=== PATIENT | female | born 1965 | race Caucasian/White ===

== ENCOUNTER → 2024-03-04 | Outpatient (CLI) | payer MEDICAID ==
[2024-03-04 12:32] LABS: INR 1.1 (<1.2); Partial Thromboplastin Time 26.4 sec (22.0-30.0); Prothrombin Time 11.6 sec (10.0-12.5)
[2024-03-04 15:25] LABS: HCT 46.1 % (37.2-46.3); MCH 31.9 pg (27.0-32.0); MCHC 32.5 g/dL (32.0-37.0); MCV 98.1 FL (80.0-97.0); Mean Platelet Volume 10.2 FL (9.5-12.2); NRBC Per 100 WBC 0 X 10*3/uL (0.00-0.01); Platelet Count 234 X 10*3/uL (140-440); RDW 14.1 % (11.5-14.5); WBC 10.31 X 10*3/uL (4.50-10.00)
[2024-03-04 15:38] LABS: ALT 107 U/L (8-44); AST 112 U/L (13-35); Albumin 4.1 g/dL (3.8-4.9); Albumin/Globulin Ratio 1.24 Ratio (1.60-3.17); Alkaline Phosphatase 131 U/L (41-126); BUN/Creat Ratio 19.11 Ratio (12.00-20.00); Blood Urea Nitrogen 17.2 mg/dL (9.0-27.0); Calcium 9.5 mg/dL (8.7-10.3); Carbon Dioxide 26.5 mmol/L (21.6-31.8); Chloride 102 mmol/L (96-109); Globulin 3.3 g/dL (1.6-3.3); Glucose 98 mg/dL (70-110); Potassium 4.7 mmol/L (3.5-5.5); Sodium 138 mmol/L (135-145); Total Bilirubin 0.5 mg/dL (0.3-1.2); Total Protein 7.4 g/dL (6.2-8.2)
== END | disposition home or self-care (01) ==
LOC: LABWHC1 10:48
PROVIDERS: ATTEND Orthopaedic Surgery
CPT/HCPCS: 36415; 80053; 85027; 85610; 85730; 87070

== ENCOUNTER 2024-03-16 05:34 | Day surgery (SDC) | payer MEDICAID ==
[2024-03-10 10:37] VITALS: BMI 46.8
[~2024-03-16 05:34] MED LIST: TRANEXAMIC 1,000 MG/100ML-NACL 1,000 MG in SALINE 1 100ML.BAG IVPB PRN
[2024-03-16] MEDS ORDERED: LIDOCAINE 1% (10MG/ML) FOR IV START INTRADERMA PRN (05:52)
[2024-03-16] MEDS: LACTATED RINGERS 1,000 ML IV SCH (06:15)
[2024-03-16] MEDS: IV FLUID CONTINUATION 1,000 ML IV ONE ×2 (06:15→10:34)
[2024-03-16] MEDS: GABAPENTIN 300 MG CAP PO PRN (06:18)
[2024-03-16] MEDS: MELOXICAM 7.5 MG TAB PO PRN (06:19)
[2024-03-16] MEDS: ACETAMINOPHEN TAB 500 MG TAB PO PRN (06:19)
[2024-03-16] MEDS: ONDANSETRON 4 MG/2 ML VIAL IVP ONE (06:20)
[2024-03-16 06:33] LABS: Glucose,Whole Blood 136 mg/dL (70-110)
[2024-03-16] MEDS: MIDAZOLAM 2 MG/2 ML VIAL IV ONE (06:34)
[2024-03-16] MEDS ORDERED: KETAMINE HCL IN 0.9 % NACL 50 MG/5 ML SYRINGE ONE (06:54)
[2024-03-16] MEDS ORDERED: fentaNYL (PF) 50 MCG/ML 2 ML AMP ONE (06:54)
[2024-03-16] MEDS ORDERED: TRANEXAMIC 1,000 MG/100ML-NACL PREMIX BAG ONE (06:54)
[2024-03-16] MEDS ORDERED: PHENYLEPHRINE-0.9% NACL SYG 1,000 MCG/10 ML SYRINGE ONE (06:54)
[2024-03-16] MEDS ORDERED: ROPIVACAINE 5 MG/ML 30 ML VIAL ONE (06:54)
[2024-03-16] MEDS ORDERED: MIDAZOLAM 2 MG/2 ML VIAL ONE (06:54)
[2024-03-16] MEDS ORDERED: GLYCOPYRROLATE 0.2 MG/ML 2 ML VIAL ONE (06:54)
[2024-03-16] MEDS ORDERED: PROPOFOL 10 MG/ML 20 ML VIAL IV ONE (06:54)
[2024-03-16] MEDS ORDERED: SODIUM CHLORIDE 0.9% (PF) 10 ML VIAL ONE (06:54)
[2024-03-16] MEDS: ceFAZolin 3 GM in SODIUM CHLORIDE 0.9% 100 ML IVPB PRN (07:00)
[2024-03-16] MEDS: ceFAZolin 1,000 MG in SODIUM CHLORIDE 0.9% 1,000 ML IRRIGATION ONE (07:00)
[2024-03-16] MEDS ORDERED: fentaNYL (PF) 50 MCG/ML 2 ML AMP IV PRN (07:00)
--- NOTE | 2024-03-16 08:12 | P.OP ---
Date of Procedure: 03/16/24 Preoperative Diagnosis: Severe osteoarthritis right knee Postoperative Diagnosis: Severe osteoarthritis right knee Procedure(s) Performed: Right total knee arthroplasty Implants: [employer] Journey II CR Oxinium cruciate retaining femoral component size 5, right [employer] Journey nonporous tibial baseplate size 4, right [employer] Journey II, XLPE Deep Dished articular insert, size 9 mm, Size 3- 4, right [employer] Journey Josy II resurfacing patellar component, oval, 29 mm All components were cemented using Palacos R bone cement The articulation is Oxinium on polyethylene Anesthesia: spinal Surgeon: Dallas Clemens Yardage Control Operator Forming #1: Mallorie Dhaliwal Estimated Blood Loss (ml): 30 Pathology: none sent Condition: stable Disposition: PACU Indications for Procedure: The patient's knee is end-stage, and conservative management has failed. The operation of knee replacement has been discussed at length in the office, as well as potential risks and complications. These are inclusive of, but not limited to: Infection, bleeding, scarring, discomfort, stiffness, blood vessel and nerve damage, need for further surgery, failure to relieve symptoms, persistence, recurrence, or worsening of problems, loosening, dislocation, wear, blood clot, pulmonary embolism, , gait dysfunction, stiffness, and other risks as discussed in the office. Patient elects to proceed and the consent form has been signed. Operative Findings: The operative findings are consistent with severe osteoarthritis of the right knee Description of Procedure: The patient was seen in the preoperative area, the consent was reviewed and the operative site was marked with a skin marker. The patient verified the procedure and the operative site. An adductor canal pain catheter and an iPACK block were placed by anesthesia in the preoperative area. The patient was then brought to the operating room and positioned on the operating room table in the supine position. Preoperative antibiotics and a gram of tranexamic acid were given intravenously. A spinal anesthetic was administered by the anesthesia department. Care was taken to make sure that all pressure points were adequately padded. A tourniquet was placed on the upper thigh and the lower extremity was prepped with ChloraPrep and draped in usual sterile fashion. A universal time-out was then performed which confirmed the patient's name, surgical site, ALLERGIES, and consent. The lower extremity was then exsanguinated and tourniquet was inflated to 250 mmHg. A standard anterior midline approach to the knee was performed. The skin and subcutaneous tissue were sharply dissected down to the patellar tendon. A medial parapatellar arthrotomy was then performed. The knee was then extended, the patellar was everted, and the knee was flexed. The infra-patellar fat pad was removed in order to enhance exposure. The anterior horns of both menisci were excised, and a release was performed to the posterior medial aspect of the knee. On gross visual inspection, there was complete loss of articular cartilage in the medial and patellofemoral joint spaces. There was also significant cartilage damage in the lateral compartment. There were multiple periarticular osteophytes globally about the knee which were then removed with a Ronguer. The femoral canal was then opened with the 9.5 mm intramedullary drill. The 8 mm intramedullary michelle was then inserted into the femoral canal with the distal femoral cutting guide set for 5 of valgus. The distal femoral cutting block was then pinned in place. The intramedullary michelle was then removed, and the distal femur was then cut. The cutting block was then removed and the cut was checked for symmetry. The resected bone was then measured to confirm the appropriate distal femoral resection. Next, the sizing guide was then placed and set for 3 external rotation based off of the epicondylar axis and Ashland's line. Pins were then placed and the drill holes, and the femur was sized with the sizing stylus. The pins were then removed, and the sizing guide was then removed. The spikes of the appropriate size femoral block was then placed into the predrilled holes, and malleted into place. Two 45 mm pins were then placed into the fixation holes on the cutting block. An berna wing was then used to ensure there would be no notching with the anterior cut. The anterior condyles were cut without notching. The anterior chord cut was then performed, followed by the posterior cut, posterior chamfer cut, and the anterior chamfer cut. The collateral ligaments were protected during the entire process. The cutting block was then removed. Any remaining bone and osteophytes were removed from the femur with a Ronguer. Attention was then directed to the tibia. The remaining ACL was removed with a Ronguer, and the tibia was then gently subluxed forward with a large bent knee retractor. Any remaining menisci were excised. The posterior lateral corner was cauterized in order to coagulate the lateral geniculate artery. The extra medullary tibial cutting guide was then placed, set for the appropriate rotation, slope, and depth of resection. The proximal tibia cutting guide was then pinned in place. Proximal tibia was then cut and sized. A curved osteotome was then used to remove any posterior osteophytes from the distal femur. The femoral trial was placed. A narrow saw blade was then used to remove the anterior intracondylar femoral bone. The CR notch trial was then placed. The tibial trial was placed with the appropriate-sized insert. The knee was able to fully extend and flex to 130 and was stable throughout all range of motion. The knee was then extended and the patella was everted. Patella was then measured, and then using an osteotomy guide, the patella was cut at the appropriate level. The patellar component was sized. The patellar drill guide was placed and the patella was drilled. The patella trial was then placed. The knee was then taken through range of motion with the patella trial and the patella tracked normally using the no thumbs technique. The patella trial was t hen removed. The knee was then flexed and lug holes were drilled through the femoral trial and the femoral trial was then removed. The tibial was then re- exposed, and the tibial broach guide was then pinned in place after it was set for the appropriate rotation to allow for the most coverage without overhang. The tibia was then reamed and broached. The femoral canal was plugged with autologous bone. The cut surfaces of bone were then irrigated with pulsatile lavage. The knee was also irrigated with Irrisept solution. The components were then opened, the cement was mixed. Cement was placed on the backside of the femoral, tibial, and patellar components. Cement was then applied to the tibial surface and pressurized into the surface using finger pressurization technique. The tibial component was then applied and excess cement was removed after it was impacted securely noted to be flush with the cut surface. In similar fashion, the cement was applied to the cut femoral surface, pressurized and using finger pressurization the component was impacted in place. Excess cement was removed. The polyethylene spacer was then implanted and locked into position. Patellar component was then applied in a similar technique and the patellar clamp was used to hold patella in place while the cement hardened. The knee was held in full extension while the cement hardened. Once the cement had fully hardened, the knee was reinspected. Any other cement extrusion was removed the final range of motion testing showed range of motion from 0-130 with excellent stability, both medial and laterally and appropriate alignment of the leg. Patella tracked normally. After the cemented hardened, the tourniquet was released and hemostasis was obtained. A second gram of transexamic acid was given intravenously. The knee was again irrigated. The knee was again taken through range of motion and found to be stable throughout all range of motion of 0-130, and the patella tracked normally. The fascia was then closed with 0 Vicryl followed by #2 strata fix suture. The subcutaneous tissue was closed with 3-0 Vicryl and 3-0 strata fix. Exofin glue was used for the skin and placed with the knee in flexion. After the glue had dried, and Optafoam silver impregnated dressing was applied. A lightly compressive dressing was applied using web roll and Andrea wrap. Patient was then transferred to the stretcher and taken to recovery room in stable condition. Sponge and needle counts were correct. The activities assistant EVIE Nichole was required due the complexity surgery and the need for a skilled recruitment assistant. She assisted in positioning, draping, retraction, and closure of the wound.
[2024-03-16] MEDS ORDERED: MAGNESIUM HYDROXIDE 2,400 MG/30 ML CUP PO PRN (08:43)
[2024-03-16] MEDS ORDERED: NA PHOS,M-B/NA PHOS,DI-BA 133 ML ENEMA RECTAL PRN (08:43)
[2024-03-16] MEDS ORDERED: NALOXONE 0.4 MG/ML 1 ML VIAL IV PRN (08:43)
[2024-03-16] MEDS ORDERED: ONDANSETRON 4 MG/2 ML VIAL IVP PRN (08:43)
[2024-03-16] MEDS ORDERED: HYDROmorphone 0.5 MG/0.5 ML SYRINGE IVP PRN (08:43)
[2024-03-16] MEDS ORDERED: bisacodyL 10 MG SUPP RECTAL PRN (08:43)
[2024-03-16] MEDS ORDERED: HYDROcodone/APAP 7.5-325MG 1 EACH TAB PO PRN (08:45)
--- NOTE | 2024-03-16 09:07 | P.ANPRN ---
Procedure Note - Anesthesia - Nerve Block Performed Right Adductor Canal Infusion Time Out Performed: Yes (0646) Date of Procedure: 03/16/24 Procedure Start Time: 06:47 Procedure Stop Time: 06:51 Location of Patient: PreOp Indication: Acute Post-Operative Pain, Requested by Surgeon Specifically requested for management of pain by DrMarcus: Dallas Clemens Sedation Type: Sedate with meaningful contact maintained Preparation: Sterile Prep, Sterile Dressing Position: Supine Catheter Depth at Skin (cm): 7 Catheter: Indwelling Needle Types: Pajunk Needle Gauge: 18 Ultrasound used to visualize needle placement: Yes Ultrasound used to observe medication spread: Yes Injectate: 0.5% Ropivacaine (see comment for volume) (15cc+10cc nacl pf) Blood Aspirated: No Pain Paresthesia on Injection Noted: No Resistance on Injection: Normal Image Stored and Saved: Yes Events: Uneventful and Well Tolerated
--- NOTE | 2024-03-16 09:08 | P.ANPRN ---
Procedure Note - Anesthesia - Nerve Block Performed Right iPack Single Time Out Performed: Yes (0646) Date of Procedure: 03/16/24 Procedure Start Time: 06:52 Procedure Stop Time: 06:54 Location of Patient: PreOp Indication: Acute Post-Operative Pain, Requested by Surgeon Specifically requested for management of pain by DrMarcus: Dallas Clemens Sedation Type: Sedate with meaningful contact maintained Preparation: Sterile Prep, Sterile Dressing Position: Supine Catheter: None Needle Types: Pajunk Needle Gauge: 21 Ultrasound used to visualize needle placement: Yes Ultrasound used to observe medication spread: Yes Injectate: 0.5% Ropivacaine (see comment for volume) (15cc+10cc nacl pf) Blood Aspirated: No Pain Paresthesia on Injection Noted: No Resistance on Injection: Normal Image Stored and Saved: Yes Events: Uneventful and Well Tolerated
--- NOTE | 2024-03-16 09:09 | XR ---
EXAMINATION TYPE: XR knee limited RT DATE OF EXAM: 03/16/2024 9:06 AM COMPARISON: None CLINICAL INDICATION: Female, 58 years old with history of Evaluation for Postop abnormality and align ment; [facility] TECHNIQUE: XR knee limited RT; examined in Frontal, lateral projections. FINDINGS: Status post total knee arthroplasty changes with hardware in appropriate alignment and in tact. No evidence of fracture. Subcutaneous lucencies and lucencies within the joint consistent with surgical changes. IMPRESSION: Status post total knee arthroplasty changes with hardware intact and appropriate alignment. No fractu res identified. [facility], , 03/16/2024 9:07 AM
[2024-03-16 09:39] LABS: Glucose,Whole Blood 135 mg/dL (70-110)
[2024-03-16] MEDS: ROPIVACAINE 1,100 MG, SODIUM CHLORIDE 0.9% 500 ML 330 ML, EMPTY PAIN BALL 1 EACH MISCELLANE PRN (09:52)
[2024-03-16] MEDS: SODIUM CHLORIDE 0.9% 1,000 ML IV SCH (10:33)
[2024-03-16] MEDS: MELOXICAM 7.5 MG TAB PO SCH (11:19)
[2024-03-16] MEDS: HYDROmorphone 0.5 MG/0.5 ML SYRINGE IVP PRN (11:21)
[2024-03-16] MEDS: HYDROcodone/APAP 7.5-325MG 1 EACH TAB PO PRN (12:20)
[2024-03-16] MEDS ORDERED: DEXTROSE 50% SYRINGE 50 ML IVP PRN ×2 (13:52)
--- NOTE | 2024-03-16 14:16 | P.CONS ---
History of Present Illness - Reason for Consult Consult date: 03/16/24 Medical management, right knee arthroplasty - History of Present Illness This is a very pleasant 58-year-old female who was admitted under orthopedic services status post right knee total arthroplasty, postop day 0. Patient reports she follows with Dr. humphreys in the outpatient setting with a past medical history of "prediabetes", GERD, hyperlipidemia, hypertension, osteoarthritis, sleep apnea uses a CPAP, thyroid disorder, anxiety/depression. Patient reports her pain is currently controlled and recommends to continue with incentive spirometer use at least 10 times every hour while awake. Patient is a prediabetic and will continue with Accu-Cheks and sliding scale as needed for now. Patient does take lisinopril/hydrochlorothiazide daily although blood pressures are low recommend holding for now and monitoring for any postop hypotension. Recommend repeat labs in the AM. Awaiting PT/OT therapy evaluation in the AM. REVIEW OF SYSTEMS: CONSTITUTIONAL: No fever, no malaise, no fatigue. HEENT: No recent visual problems or hearing problems. Denied any sore throat. CARDIOVASCULAR: No chest pain, orthopnea, PND, no palpitations, no syncope. PULMONARY: No shortness of breath, no cough, no hemoptysis. GASTROINTESTINAL: No diarrhea, no nausea, no vomiting, no abdominal pain. NEUROLOGICAL: No headaches, no weakness, no numbness. HEMATOLOGICAL: Denies any bleeding or petechiae. GENITOURINARY: Denies any burning micturition, frequency, or urgency. MUSCULOSKELETAL/RHEUMATOLOGICAL: Denies any joint pain, swelling, or any muscle pain. Reports some right knee tenderness although mostly numb at this point ENDOCRINE: Denies any polyuria or polydipsia. The rest of the 14-point review of systems is negative. PHYSICAL EXAMINATION: GENERAL: The patient is alert and oriented x3, not in any acute distress. Well developed, well nourished. Appears older than stated age, morbidly obese HEENT: Pupils are round and equally reacting to light. EOMI. No scleral icterus. No conjunctival pallor. Normocephalic, atraumatic. No pharyngeal erythema. No thyromegaly. CARDIOVASCULAR: S1 and S2 muffled PULMONARY: Diminished breath sounds bilaterally otherwise chest is clear to auscultation, no wheezing or crackles. ABDOMEN: Soft, obese, nontender, nondistended, normoactive bowel sounds. No palpable organomegaly. MUSCULOSKELETAL: No joint swelling or deformity. EXTREMITIES: No cyanosis, clubbing, or pedal edema. Right knee surgical dressing is dry and intact and there is some minimal swelling noted NEUROLOGICAL: Gross neurological examination did not reveal any focal deficits. Diffusely weak SKIN: No rashes. Assessment: Status post right total knee arthroplasty History of prediabetes History of GERD History of thyroid disorder History of anxiety/depression History of osteoarthritis History of sleep apnea, uses a CPAP Morbid obesity with a BMI of 46.5 GI prophylaxis DVT prophylaxis Full code Plan: Patient was admitted under orthopedic services status post right total knee arthroplasty, status post day 0 recently out from the postop doing relatively well. Home medications reviewed and resumed as appropriate. Blood pressures on the softer side although normal will monitor and continue to hold HCTZ/lisinopril and monitor blood pressures Patient is a prediabetic and will obtain a hemoglobin A1c and also use as needed sliding scale and Accu-Cheks before meals and at bedtime while hospitalized. Recommend labs in the a.m. of CBC, BMP, magnesium Encouraged incentive spirometer use at least 10 times every hour while awake We will continue to follow with orthopedics during hospitalization. Thank you kindly for this consultation. The impression and plan of care has been dictated by Chiqui Handy, Nurse Practitioner as directed. Dr. Jose MD I have performed a history and examination and MDM of this patient, discussed the same with the dictator, and agree with the dictator's assessment and plan as written ,documented as a scribe. Based on total visit time, I have performed more than 50% of the visit. Past Medical History Past Medical History: GERD/Reflux, Hyperlipidemia, Hypertension, Osteoarthritis (OA), Sleep Apnea/CPAP/BIPAP, Thyroid Disorder Additional Past Medical History / Comment(s): CPAP use. Pre-Diabetic. History of Any Multi-Drug Resistant Organisms: None Reported Past Surgical History: Cholecystectomy, Joint Replacement, Orthopedic Surgery Additional Past Surgical History / Comment(s): Essure Control placed 2007, left knee arthroscopy, left foot neuroma surgery, total left knee replacement. Past Anesthesia/Blood Transfusion Reactions: No Reported Reaction Past Psychological History: Anxiety, Depression Smoking Status: Former smoker Past Alcohol Use History: Occasional Additional Past Alcohol Use History / Comment(s): Quit smoking 6-10 yrs ago. Past Drug Use History: None Reported - Past Family History Mother Family Medical History: Cancer Additional Family Medical History / Comment(s): Colon cancer - . Father Family Medical History: Cancer Additional Family Medical History / Comment(s): Non-Hodgkins Lymphoma - . Medications and Allergies Home Medications Medication Instructions Recorded Confirmed Type Acetaminophen [Tylenol Extra 500 - 1,000 mg PO DIRECTED PRN 03/10/24 03/16/24 History Strength] Cetirizine HCl 10 mg PO DAILY 03/10/24 03/16/24 History Lansoprazole 15 mg PO QAM 03/10/24 03/16/24 History Levothyroxine Sodium 88 mcg PO HS 03/10/24 03/16/24 History Lisinopril-Hctz 10-12.5 mg 1 tab PO QAM 03/10/24 03/16/24 History [Zestoretic 10-12.5] Meloxicam [Mobic] 15 mg PO DAILY 03/10/24 03/16/24 History Venlafaxine HCl ER [Effexor Xr] 150 mg PO QAM 03/10/24 03/16/24 History Vitamin C + Vitamin D3 + Zinc 1 tab PO DAILY 03/10/24 03/16/24 History buPROPion XL [Wellbutrin XL] 300 mg PO QAM 03/10/24 03/16/24 History Aspirin 325 mg PO BID #60 tab 03/16/24 Rx Sennosides [Senokot] 2 tab PO DAILY PRN #60 tablet 03/16/24 Rx Allergies Allergy/AdvReac Type Severity Reaction Status Date / Time acetaminophen Allergy Rash/Hives Verified 03/16/24 05:55 [From Darvocet-N] hydrocodone [From Vicodin] Allergy Rash/Hives Verified 03/16/24 05:55 Penicillins Allergy Rash/Hives Verified 03/16/24 05:55 propoxyphene Allergy Rash/Hives Verified 03/16/24 05:55 [From Darvocet-N] Sulfa (Sulfonamide Allergy Rash/Hives Verified 03/16/24 05:55 Antibiotics) Physical Exam Vitals: Vital Signs Temp Pulse Resp BP Pulse Ox 03/16/24 11:45 90 94/63 93 L 03/16/24 11:30 97 121/63 92 L 03/16/24 11:15 94 113/72 93 L 03/16/24 11:00 91 105/71 96 03/16/24 10:45 97.8 F 91 18 102/62 97 03/16/24 10:25 86 16 141/60 97 03/16/24 09:55 85 16 112/60 97 03/16/24 09:40 90 16 119/63 98 03/16/24 09:25 93 16 92/55 96 03/16/24 09:10 95 18 92/55 97 03/16/24 08:55 89 16 91/54 95 03/16/24 08:40 97.6 F 96 16 98/45 97 03/16/24 06:57 74 16 150/75 97 03/16/24 06:07 96.8 F L 111 H 18 154/74 96 Intake and Output 03/15/24 03/16/24 03/16/24 22:59 06:59 14:59 Intake Total 100 2000 Output Total 30 Balance 100 1971 Intake: IV 100 2000 Output: Estimated Blood Loss 30 Other: Weight 134.7 kg 134.7 kg Results Labs: Abnormal Lab Results - Last 24 Hours (Table) 03/16/24 03/16/24 Range/Units 06:32 09:36 POC Glucose (mg/dL) 136 H 135 H (70-110) mg/dL
[2024-03-16] MEDS: PANTOPRAZOLE 40 MG TABLET PO SCH (15:36)
[2024-03-16] MEDS: ceFAZolin 3 GM in SODIUM CHLORIDE 0.9% 100 ML IVPB SCH (15:42)
[2024-03-16] MEDS: INSULIN ASPART (NovoLOG) 100 UNIT/ML VIAL SQ SCH (16:54)
[2024-03-16 16:56] LABS: Glucose,Whole Blood 150 mg/dL (70-110)
[2024-03-16] MEDS: HYDROmorphone 2 MG/ML 1 ML SYRINGE IVP PRN (20:12)
[2024-03-16] MEDS: SENNOSIDES-DOCUSATE SODIUM 1 EACH TAB PO SCH (20:19)
[2024-03-16] MEDS: ASPIRIN 325 MG TAB PO SCH (20:19)
[2024-03-16] MEDS: LEVOTHYROXINE 88 MCG TAB PO SCH (20:19)
[2024-03-16 21:22] LABS: Glucose,Whole Blood 115 mg/dL (70-110)
[2024-03-17 06:55] LABS: Glucose,Whole Blood 126 mg/dL (70-110)
--- NOTE | 2024-03-17 07:14 | P.DS ---
Providers Expected date of discharge: 03/17/24 Attending physician: Dallas Clemens Consults: 03/16/24 08:43 Consult Physician Routine Consulting Provider: Amy Garcia Consult Reason/Comments: medical management Do you want consulting provider notified?: Yes Primary care physician: Imelda Pham - Discharge Diagnosis(es) (1) Osteoarthritis of right knee Current Visit: Yes Status: Acute (2) S/P total knee arthroplasty Current Visit: Yes Status: Acute Hospital Course: This is a 58-year-old female with known history of degenerative arthritis of the right knee. The patient presented for evaluation as an outpatient. After discussion and consideration patient elects to proceed with total knee arthroplasty. The patient is seen preoperatively by Dr. Clemens and medically cleared for surgery by their primary care physician. Patient is admitted to [facility] on 03/16/2024 for total knee arthroplasty. The procedure is performed without complication or sequelae. The patient is doing well postoperatively. Labs and vital signs are stable on day of discharge. On day of discharge patient's knee incision is healing well. There is minimal erythema. There is no drainage noted at this time. There is minimal soft tissue swelling to the knee. Patient has full foot and ankle motion without difficulty or pain. Calf is soft and nontender to palpation. Neurovascular status to the right lower extremity is intact. Patient is discharged home in good condition. Please see med rec for accurate list of home medications. Plan - Discharge Summary Discharge Rx Participant: No New Discharge Prescriptions: New Aspirin 325 mg PO BID #60 tab Sennosides [Senokot] 2 tab PO DAILY PRN #60 tablet PRN Reason: Constipation HYDROcodone/APAP 7.5-325MG [[place] 7.5-325] 1 - 2 tab PO Q6H PRN #32 tab PRN Reason: Pain Ketorolac [Toradol] 10 mg PO Q6HR #12 tab No Action Vitamin C + Vitamin D3 + Zinc 1 tab PO DAILY Meloxicam [Mobic] 15 mg PO DAILY Levothyroxine Sodium 88 mcg PO HS Lansoprazole 15 mg PO QAM Lisinopril-Hctz 10-12.5 mg [Zestoretic 10-12.5] 1 tab PO QAM buPROPion XL [Wellbutrin XL] 300 mg PO QAM Venlafaxine HCl ER [Effexor Xr] 150 mg PO QAM Cetirizine HCl 10 mg PO DAILY Acetaminophen [Tylenol Extra Strength] 500 - 1,000 mg PO DIRECTED PRN PRN Reason: Pain Discharge Medication List Acetaminophen [Tylenol Extra Strength] 500 - 1,000 mg PO DIRECTED PRN 03/10/24 [History] Cetirizine HCl 10 mg PO DAILY 03/10/24 [History] Lansoprazole 15 mg PO QAM 03/10/24 [History] Levothyroxine Sodium 88 mcg PO HS 03/10/24 [History] Lisinopril-Hctz 10-12.5 mg [Zestoretic 10-12.5] 1 tab PO QAM 03/10/24 [History] Meloxicam [Mobic] 15 mg PO DAILY 03/10/24 [History] Venlafaxine HCl ER [Effexor Xr] 150 mg PO QAM 03/10/24 [History] Vitamin C + Vitamin D3 + Zinc 1 tab PO DAILY 03/10/24 [History] buPROPion XL [Wellbutrin XL] 300 mg PO QAM 03/10/24 [History] Aspirin 325 mg PO BID #60 tab 03/16/24 [Rx] Sennosides [Senokot] 2 tab PO DAILY PRN #60 tablet 03/16/24 [Rx] HYDROcodone/APAP 7.5-325MG [[place] 7.5-325] 1 - 2 tab PO Q6H PRN #32 tab 03/17/24 [Rx] Ketorolac [Toradol] 10 mg PO Q6HR #12 tab 03/17/24 [Rx] Follow up Appointment(s)/Referral(s): Dallas Clemens DO [Doctor of Osteopathic Medicine] - 2 Weeks Activity/Diet/Wound Care/Special Instructions: Weightbearing as tolerated with a walker. CPM 5-6h daily as tolerated. Leave dressing intact. Dressing may be removed by home care nurse or by patient in 7 days. Then change dressing twice daily until follow up. May shower with initial dressing intact and after removal. If dressing become saturated, please remove. Recommend use of compression stockings daily until follow up to help prevent swelling and blood clots. May remove at night before sleeping. Please take aspirin 325mg twice daily for 30 days to prevent blood clots. Please follow up with [facility] and call with any questions or concerns, . Discharge Disposition: HOME WITH HOME HEALTH SERVICES
[2024-03-17 08:28] LABS: Basophils # (A) 0.06 X 10*3/uL (0.00-0.10); Basophils % (A) 0.5 %; Eosinophils # (A) 0.07 X 10*3/uL (0.04-0.35); Eosinophils % (A) 0.5 %; HCT 42.9 % (37.2-46.3); HGB 13.5 g/dL (12.0-15.0); Lymphocytes % (A) 13.5 %; MCH 31.5 pg (27.0-32.0); MCHC 31.5 g/dL (32.0-37.0); MCV 100.2 FL (80.0-97.0); Mean Platelet Volume 9.8 FL (9.5-12.2); Monocytes # (A) 1.26 X 10*3/uL (0.20-1.00); Monocytes % (A) 9.5 %; NRBC Per 100 WBC 0 X 10*3/uL (0.00-0.01); Neutrophils # (A) 10.06 X 10*3/uL (1.80-7.70); Neutrophils % (A) 75.4 %; Platelet Count 242 X 10*3/uL (140-440); RBC 4.28 X 10*6/uL (4.10-5.20); RDW 14.4 % (11.5-14.5); WBC 13.33 X 10*3/uL (4.50-10.00)
[2024-03-17] MEDS: KETOROLAC 15 MG/ML 1 ML VIAL IVP PRN (08:35)
[2024-03-17] MEDS: LORATADINE 10 MG TAB PO SCH (08:36)
[2024-03-17] MEDS: VENLAFAXINE HCL ER 150 MG CAP PO SCH (08:36)
[2024-03-17] MEDS: buPROPion XL 300 MG TAB.ER.24H PO SCH (08:36)
[2024-03-17] MEDS ORDERED: ZINC PO SCH (09:00)
[2024-03-17] MEDS ORDERED: VITAMIN C PO SCH (09:00)
[2024-03-17] MEDS ORDERED: VITAMIN D3 PO SCH (09:00)
[2024-03-17 09:07] LABS: BUN/Creat Ratio 11.89 Ratio (12.00-20.00); Blood Urea Nitrogen 10.7 mg/dL (9.0-27.0); Calcium 8.8 mg/dL (8.7-10.3); Carbon Dioxide 22.9 mmol/L (21.6-31.8); Chloride 100 mmol/L (96-109); Glucose 152 mg/dL (70-110); Magnesium 1.9 mg/dL (1.5-2.4); Potassium 4.1 mmol/L (3.5-5.5); Sodium 136 mmol/L (135-145)
--- NOTE | 2024-03-17 09:57 | P.PN ---
Progress Note - Text 03/17/24 634am 58-year-old female status post total knee replacement. Patient has an On-Q pump for postop pain control with a solution running at 8 cc an hour with a VAS of 9. Patient is on oral pain meds for pain control. Plan to continue On-Q pump infusion
[2024-03-17 11:19] LABS: Glucose,Whole Blood 116 mg/dL (70-110)
[2024-03-17] MEDS: diphenhydrAMINE 25 MG CAP PO PRN (12:52)
[2024-03-17 17:25] LABS: Glucose,Whole Blood 146 mg/dL (70-110)
[2024-03-17 19:46] LABS: Glucose,Whole Blood 106 mg/dL (70-110)
--- NOTE | 2024-03-18 03:56 | P.PN ---
Subjective Progress Note Date: 03/17/24 - Reason for Consult Consult date: 03/16/24 Medical management, right knee arthroplasty - History of Present Illness This is a very pleasant 58-year-old female who was admitted under orthopedic services status post right knee total arthroplasty, postop day 0. Patient reports she follows with Dr. humphreys in the outpatient setting with a past medical history of "prediabetes", GERD, hyperlipidemia, hypertension, osteoarthritis, sleep apnea uses a CPAP, thyroid disorder, anxiety/depression. Patient reports her pain is currently controlled and recommends to continue with incentive spirometer use at least 10 times every hour while awake. Patient is a prediabetic and will continue with Accu-Cheks and sliding scale as needed for now. Patient does take lisinopril/hydrochlorothiazide daily although blood pressures are low recommend holding for now and monitoring for any postop hypotension. Recommend repeat labs in the AM. Awaiting PT/OT therapy evaluation in the AM. 03/17/2024 Patient is seen in follow-up today reports to feeling well other than continued pain of the right knee. Per nursing staff probably being held over 1 night for pain management as well as reevaluation by physical therapy in the AM. Patient is afebrile with no reports of chest pain or shortness of breath. Blood sugars have been controlled and will continue current regimen for now. Encouraged incentive spirometer use at least 10 times every hour while awake. Review of systems: Constitutional: No reports of fatigue, fever, or chills Cardiovascular: No reports of chest pain or palpitations Respiratory: No reports of shortness of breath or cough GI: No reports of nausea, vomiting, or diarrhea : No reports of dysuria or retention Neurovascular: reports of generalized weakness and right knee pain All medications have been reviewed PHYSICAL EXAMINATION: GENERAL: The patient is alert and oriented x3, not in any acute distress. Well developed, well nourished. Appears older than stated age, morbidly obese HEENT: Pupils are round and equally reacting to light. EOMI. No scleral icterus. No conjunctival pallor. Normocephalic, atraumatic. No pharyngeal erythema. No thyromegaly. CARDIOVASCULAR: S1 and S2 muffled PULMONARY: Diminished breath sounds bilaterally otherwise chest is clear to auscultation, no wheezing or crackles. ABDOMEN: Soft, obese, nontender, nondistended, normoactive bowel sounds. No palpable organomegaly. MUSCULOSKELETAL: No joint swelling or deformity. EXTREMITIES: No cyanosis, clubbing, or pedal edema. Right knee surgical dressing is dry and intact and there is some minimal swelling noted NEUROLOGICAL: Gross neurological examination did not reveal any focal deficits. Diffusely weak SKIN: No rashes. Assessment: Status post right total knee arthroplasty History of prediabetes, hemoglobin A1c 6.7 History of GERD History of thyroid disorder History of anxiety/depression History of osteoarthritis History of sleep apnea, uses a CPAP Morbid obesity with a BMI of 46.5 GI prophylaxis DVT prophylaxis Full code Plan: Patient was admitted under orthopedic services status post right total knee arth roplasty, worked with physical therapy although awaiting reevaluation in the morning Continue pain management and DVT prophylaxis per orthopedics. Patient reports pain is intense and uncontrolled and likely being watched overnight for continued pain management Continue to encourage incentive spirometer at least 10 times every hour while awake Home medications reviewed and resumed as appropriate. Blood pressures on the softer side although normal will monitor and continue to hold HCTZ/lisinopril and monitor blood pressures Patient is a prediabetic and hemoglobin A1c is 6.7. Will continue sliding scale and Accu-Cheks before meals and at bedtime while hospitalized. Instructed patient to discuss with primary care regarding reinitiating oral diabetic agents. Continue with diet modifications Possible discharge planning in the next 24 hours We will continue to follow with orthopedics during hospitalization. Thank you kindly for this consultation. The impression and plan of care has been dictated by Chiqui Handy, Nurse Practitioner as directed. Dr. Jose MD I have performed a history and examination and MDM of this patient, discussed the same with the dictator, and agree with the dictator's assessment and plan as written ,documented as a scribe. Based on total visit time, I have performed more than 50% of the visit. Objective - Vital Signs Vital signs: Vital Signs Temp 97.8 F 03/17/24 07:33 Pulse 85 03/17/24 07:33 Resp 16 03/17/24 07:33 BP 123/62 03/17/24 07:33 Pulse Ox 90 L 03/17/24 07:33 FiO2 Intake & Output 03/16/24 03/17/24 03/17/24 18:59 06:59 18:59 Intake Total 2241 940 Output Total 30 Balance 2211 940 Weight 134.7 kg Intake: IV 2000 Intake, IV Titration 940 Amount Sodium Chloride 0.9% 1, 840 000 ml @ 70 mls/hr IV . [id number] [facility] Rx#:[id number] ceFAZolin 3 gm In Sodium 100 Chloride 0.9% 100 ml @ 200 mls/hr IVPB Q8HR [facility] Rx#:[id number] Oral 240 Output: Estimated Blood Loss 30 Other: Voiding Method Toilet # Voids 1 3 - Labs CBC & Chem 7: 03/17/24 03:21 03/17/24 03:21 Labs: Abnormal Lab Results - Last 24 Hours (Table) 03/16/24 03/16/24 03/16/24 Range/Units 09:36 16:53 21:09 WBC (4.50-10.00) X 10*3/uL MCV (80.0-97.0) FL MCHC (32.0-37.0) g/dL Immature Gran # (0.00-0.04) X 10*3/uL Neutrophils # (1.80-7.70) X 10*3/uL Monocytes # (0.20-1.00) X 10*3/uL Anion Gap (4.00-12.00) mmol/L BUN/Creatinine Ratio (12.00-20.00) Ratio Glucose (70-110) mg/dL POC Glucose (mg/dL) 135 H 150 H 115 H (70-110) mg/dL Hemoglobin A1c (<=6.0) % 03/17/24 03/17/24 03/17/24 Range/Units 03:21 03:21 03:21 WBC 13.33 H (4.50-10.00) X 10*3/uL MCV 100.2 H (80.0-97.0) FL MCHC 31.5 L (32.0-37.0) g/dL Immature Gran # 0.08 H (0.00-0.04) X 10*3/uL Neutrophils # 10.06 H (1.80-7.70) X 10*3/uL Monocytes # 1.26 H (0.20-1.00) X 10*3/uL Anion Gap 13.10 H (4.00-12.00) mmol/L BUN/Creatinine Ratio 11.89 L (12.00-20.00) Ratio Glucose 152 H (70-110) mg/dL POC Glucose (mg/dL) (70-110) mg/dL Hemoglobin A1c 6.7 H (<=6.0) % 03/17/24 Range/Units 06:53 WBC (4.50-10.00) X 10*3/uL MCV (80.0-97.0) FL MCHC (32.0-37.0) g/dL Immature Gran # (0.00-0.04) X 10*3/uL Neutrophils # (1.80-7.70) X 10*3/uL Monocytes # (0.20-1.00) X 10*3/uL Anion Gap (4.00-12.00) mmol/L BUN/Creatinine Ratio (12.00-20.00) Ratio Glucose (70-110) mg/dL POC Glucose (mg/dL) 126 H (70-110) mg/dL Hemoglobin A1c (<=6.0) %
[2024-03-18] MEDS: diphenhydrAMINE 25 MG CAP PO PRN (06:16)
[2024-03-18 06:32] LABS: Glucose,Whole Blood 128 mg/dL (70-110)
[2024-03-18 07:11] LABS: Glucose,Whole Blood 133 mg/dL (70-110)
[2024-03-18 07:52] VITALS: BP 147/74; PULSE 102; RESP 18; TEMP 98.8
--- NOTE | 2024-03-18 11:12 | P.PN ---
Progress Note - Text Progress Note Date: 03/18/24 Addendum to discharge summary. Patient was having issues with pain control. She is doing much better today. Dressing is clean, dry and intact. Mild soft tissue swelling to the knee and lower leg. She may be discharged to home today in good condition. She is to follow-up in 2 weeks. She is to call sooner if there are any problems or questions regarding her care.
[2024-03-18 12:19] LABS: Glucose,Whole Blood 92 mg/dL (70-110)
--- NOTE | 2024-03-20 08:33 | P.PN ---
Subjective Progress Note Date: 03/18/24 - Reason for Consult Consult date: 03/16/24 Medical management, right knee arthroplasty - History of Present Illness This is a very pleasant 58-year-old female who was admitted under orthopedic services status post right knee total arthroplasty, postop day 0. Patient reports she follows with Dr. humphreys in the outpatient setting with a past medical history of "prediabetes", GERD, hyperlipidemia, hypertension, osteoarthritis, sleep apnea uses a CPAP, thyroid disorder, anxiety/depression. Patient reports her pain is currently controlled and recommends to continue with incentive spirometer use at least 10 times every hour while awake. Patient is a prediabetic and will continue with Accu-Cheks and sliding scale as needed for now. Patient does take lisinopril/hydrochlorothiazide daily although blood pressures are low recommend holding for now and monitoring for any postop hypotension. Recommend repeat labs in the AM. Awaiting PT/OT therapy evaluation in the AM. 03/17/2024 Patient is seen in follow-up today reports to feeling well other than continued pain of the right knee. Per nursing staff probably being held over 1 night for pain management as well as reevaluation by physical therapy in the AM. Patient is afebrile with no reports of chest pain or shortness of breath. Blood sugars have been controlled and will continue current regimen for now. Encouraged incentive spirometer use at least 10 times every hour while awake. 03/18/2024 Patient is seen and evaluated in follow-up today with no acute overnight issues. Patient continues to report some pain in the right knee although feeling improved and planning on going home. Patient reports she has support at the home and will be going to rehab in the outpatient setting. Patient has been instructed to continue with diabetic diet and outpatient follow-up with primary care provider regarding possibly initiating oral diabetic agents. Patient is afebrile with no reports of chest pain or shortness of breath. Patient has been instructed to take incentive spirometer at home and continue using. Review of systems: Constitutional: No reports of fatigue, fever, or chills Cardiovascular: No reports of chest pain or palpitations Respiratory: No reports of shortness of breath or cough GI: No reports of nausea, vomiting, or diarrhea : No reports of dysuria or retention Neurovascular: reports of generalized weakness and right knee pain All medications have been reviewed PHYSICAL EXAMINATION: GENERAL: The patient is alert and oriented x3, not in any acute distress. Well developed, well nourished. Appears older than stated age, morbidly obese HEENT: Pupils are round and equally reacting to light. EOMI. No scleral icterus. No conjunctival pallor. Normocephalic, atraumatic. No pharyngeal erythema. No thyromegaly. CARDIOVASCULAR: S1 and S2 muffled PULMONARY: Diminished breath sounds bilaterally otherwise chest is clear to auscultation, no wheezing or crackles. ABDOMEN: Soft, obese, nontender, nondistended, normoactive bowel sounds. No palpable organomegaly. MUSCULOSKELETAL: No joint swelling or deformity. EXTREMITIES: No cyanosis, clubbing, or pedal edema. Right knee surgical dressing is dry and intact and there is some minimal swelling noted NEUROLOGICAL: Gross neurological examination did not reveal any focal deficits. Diffusely weak SKIN: No rashes. Assessment: Status post right total knee arthroplasty History of prediabetes, hemoglobin A1c 6.7 History of GERD History of thyroid disorder History of anxiety/depression History of osteoarthritis History of sleep apnea, uses a CPAP Morbid obesity with a BMI of 46.5 GI prophylaxis DVT prophylaxis Full code Plan: Patient was admitted under orthopedic services status post right total knee arthroplasty, worked with physical therapy and did well today and reports will be going home today. Continue pain management and DVT prophylaxis per orthopedics. Continue to encourage incentive spirometer at least 10 times every hour while awake Home medications reviewed and resumed as appropriate. Blood pressures on the softer side although normal will monitor and continue to hold HCTZ/lisinopril and monitor blood pressures. Patient instructed to monitor blood pressure and resume on discharge Patient is a prediabetic and hemoglobin A1c is 6.7. Will continue sliding scale and Accu-Cheks before meals and at bedtime while hospitalized. Instructed patient to discuss with primary care regarding initiating oral diabetic agents. Continue with diet modifications Patient is medically stable once cleared by orthopedics anning in the next 24 hours We will continue to follow with orthopedics during hospitalization. Thank you kindly for this consultation. The impression and plan of care has been dictated by hCiqui Handy, Nurse Practitioner as directed. Dr. Jose MD I have performed a history and examination and MDM of this patient, discussed the same with the dictator, and agree with the dictator's assessment and plan as written ,documented as a scribe. Based on total visit time, I have performed more than 50% of the visit. Objective - Vital Signs Vital signs: Vital Signs Temp 98.8 F 03/18/24 07:51 Pulse 102 H 03/18/24 07:51 Resp 18 03/18/24 07:51 BP 147/74 03/18/24 07:51 Pulse Ox 94 L 03/18/24 07:51 FiO2 - Labs CBC & Chem 7: 03/17/24 03:21 03/17/24 03:21
== END 2024-03-18 13:45 | disposition home health service (06) ==
LOC: OR 05:34 → 4SSUR 08:40 → OR 03-18 13:45
PROVIDERS: ATTEND Orthopaedic Surgery
DX: M17.11 Unilateral primary osteoarthritis, right knee (principal); I10 Essential (primary) hypertension; E03.9 Hypothyroidism, unspecified; F32.A Depression, unspecified
CPT/HCPCS: 27447; 97161; 64999; 64448; 80048; 83735; 85025; 83036; 73560; C1713; C1776; C1751; J2250; J1171 ×3; J0690 ×2; J2405; J2795; J1885

== ENCOUNTER 2024-11-05 08:18 | Day surgery (SDC) | payer MEDICAID ==
[2024-11-05] MEDS: IV FLUID CONTINUATION 1,000 ML IV ONE ×2 (08:33→09:08)
[2024-11-05 08:45] VITALS: TEMP 97.1
[2024-11-05] MEDS: LACTATED RINGERS 1,000 ML IV SCH (08:46)
[2024-11-05] MEDS ORDERED: LIDOCAINE 2% (PF) 20 MG/ML 5 ML VIAL ONE (09:09)
[2024-11-05] MEDS ORDERED: PROPOFOL 10 MG/ML 20 ML VIAL IV ONE (09:09)
--- NOTE | 2024-11-05 09:33 | P.PCN ---
Date of Procedure: 11/05/24 Procedure(s) Performed: Brief history: Patient is a pleasant 58-year-old white female scheduled for an elective upper endoscopy as well as colonoscopy as a part of evaluation of GERD and screening for colon cancer. Her mother was diagnosed with colon cancer at age 52. Procedure performed: Esophagogastroduodenoscopy with biopsy Colonoscopy Preoperative diagnosis: GERD/screening for colon cancer and family history of colon cancer Anesthesia: MAC Procedure: After informed consent was obtained from the patient was brought into the endoscopy unit and IV sedation was administered by anesthesia under continuous monitoring. Initially upper endoscopy was done. The Olympus GF 160 video endoscope was inserted inserted into the mouth and esophagus intubated without any difficulty and was gradually advanced into the stomach and duodenum and carefully examined. The bulb and second part of the duodenum appeared normal. The scope was then withdrawn into the stomach adequately insufflated with air and upon careful examination the antrum had mild gastritis and biopsies were done from this area. Body, cardia and fundus appeared normal. The scope was then withdrawn into the esophagus. Small hiatal hernia noted. The GE junction was located at 40 cm to the incisors. There was a short segment of Pop's esophagus extending 3 mm proximal to the GE junction that was biopsied. It appeared regular with no erythema erosions or ulcerations. Rest of the esophagus appeared normal. Patient tolerated the procedure well. At this time the patient continued to remain sedation. Initial digital rectal examination was normal. Olympus CF 160 video colonoscope was then inserted into the rectum and gradually advanced to the cecum without any difficulty. Careful examination was performed as the scope was gradually being withdrawn. The prep was excellent. The cecum, ascending colon, transverse colon, descending colon, sigmoid colon and rectum appeared normal. Scattered sigmoid diverticulosis. Retroflexion was performed in the rectum and no lesions were noted. Patient tolerated the procedure well. Impression: 1. Upper endoscopy revealed mild antral gastritis, small hiatal hernia and short segment Pop's esophagus. 2. Colonoscopy revealed scattered sigmoid diverticulosis but no evidence of colorectal neoplasia Recommendations: Findings of this examination were discussed with the patient as well as her family. She was advised to follow-up with the biopsy results. If the biopsy confirms presence of Pop's esophagus, recommend repeat upper endoscopy in 3 years. Continue with lansoprazole 30 mg daily and follow antireflux measures. She was advised to have repeat screening colonoscopy in 5 years.
[2024-11-05 10:08] VITALS: BP 128/73; PULSE 84; RESP 17
[2024-11-09 11:11] LABS: Glucose,Whole Blood 98 mg/dL (70-110)
== END 2024-11-05 10:20 | disposition home or self-care (01) ==
LOC: ORWHC2ENDO 08:18
PROVIDERS: ATTEND Internal Medicine Gastroenterology
DX: Z12.11 Encounter for screening for malignant neoplasm of colon (principal); K57.30 Diverticulosis of large intestine without perforation or abscess without bleeding; Z80.0 Family history of malignant neoplasm of digestive organs; K29.50 Unspecified chronic gastritis without bleeding; K22.70 Barrett's esophagus without dysplasia; K44.9 Diaphragmatic hernia without obstruction or gangrene
CPT/HCPCS: 45378; 43239; J2704; J2003; 88305